=== PATIENT | female | born 1995 | race Hispanic/Latino ===

== ENCOUNTER 2019-07-24 13:09 | Outpatient (CLI) | payer BC ==
[2019-07-24 13:34] VITALS: BP 102/62
--- NOTE | 2019-07-24 14:52 | Ultrasound Report ---
ULTRASOUND BIOPHYSICAL PROFILE INDICATION / CLINICAL INFORMATION: well being. COMPARISON: None available. FINDINGS: BREATHING MOVEMENT = 2 GROSS BODY MOVEMENT = 2 TONE = 2 QUALITATIVE AMNIOTIC FLUID VOLUME = 2 TOTAL BIOPHYSICAL SCORE = 07/01 AMNIOTIC FLUID INDEX (cm) = 16.7 PRESENTATION: Cephalic. HEART RATE (beats per minute): Not measured The fetus is in cephalic position. IMPRESSION: 1. biophysical profile = 07/01 Signer Name: Andrea Brooks MD Signed: 07/24/2019 2:48 PM Workstation Name: [email or web address]
[2019-07-24] MEDS ORDERED: BRETHINE ONE (15:23)
[2019-07-24] MEDS ORDERED: BRETHINE SUB-Q SCH (16:00)
[2019-07-24 16:16] LABS: Bacteria,Urine 1+ /HPF (Negative); Bilirubin,Urine NEG (Negative); Blood,Urine NEG (Negative); Color,Urine Straw (Yellow); Protein,Urine <15 mg/dL mg/dL (Negative); Urobilinogen,Urine < 2.0 mg/dL (<2.0); WBC,Urine < 1.0 /HPF (0.0-6.0)
== END 2019-07-24 16:15 | disposition home or self-care (01) ==
LOC: EDBD 13:09 → TRG 13:09
PROVIDERS: ATTEND Obstetrics & Gynecology
DX: O26.893 Other specified pregnancy related conditions, third trimester (principal); R10.9 Unspecified abdominal pain; O47.03 False labor before 37 completed weeks of gestation, third trimester; Z3A.35 35 weeks gestation of pregnancy
CPT/HCPCS: 59025; 76815; 76819; 81001; 96372; J3105

== ENCOUNTER 2019-07-29 11:02 | Outpatient (CLI) | payer BC ==
[2019-07-29 12:38] VITALS: BP 115/71
== END 2019-07-29 12:46 | disposition home or self-care (01) ==
LOC: TRG 11:02
PROVIDERS: ATTEND Obstetrics & Gynecology
DX: O26.893 Other specified pregnancy related conditions, third trimester (principal); H47.10 Unspecified papilledema; O16.3 Unspecified maternal hypertension, third trimester; Z3A.35 35 weeks gestation of pregnancy
CPT/HCPCS: 59025

== ENCOUNTER 2019-08-20 05:40 | Inpatient (IN) | payer BC ==
[2019-08-20] MEDS ORDERED: FAMOTIDINE 20 MG/2 ML INJ IV ONE (05:46)
[2019-08-20] MEDS ORDERED: METOCLOPRAMIDE 10 MG/2 ML INJ IV ONE (05:46)
[2019-08-20] MEDS ORDERED: BICITRA ORAL LIQD 30ML PO ONE (05:46)
[2019-08-20] MEDS ORDERED: OXYTOCIN 20 UNIT/1000ML DRIP 20 UNITS/1,000 ML BAG IV SCH ×2 (06:00→12:16)
[2019-08-20] MEDS ORDERED: ceFAZolin/Water 2 GM/20 ML 2 GM/20 ML SYRINGE IV NR (06:00)
[2019-08-20] MEDS ORDERED: LACTATED RINGERS 1,000 ML IV SCH (06:00)
[2019-08-20 06:48] LABS: Basophils % (Auto) 0.2 % (0.0-1.8); Eosinophils # (Auto) 0.1 K/mm3 (0.0-0.4); Eosinophils % (Auto) 0.6 % (0.0-4.3); Hematocrit 39.9 % (30.3-42.9); Hemoglobin 13.1 gm/dl (10.1-14.3); Lymphocytes # (Auto) 3.3 K/mm3 (1.2-5.4); Lymphocytes % (Auto) 21.2 % (13.4-35.0); Mean Corpuscular HGB Conc 33 % (30-34); Mean Corpuscular Volume 95 fl (79-97); Monocytes # (Auto) 1.1 K/mm3 (0.0-0.8); Monocytes % (Auto) 7.1 % (0.0-7.3); Red Blood Count 4.22 M/mm3 (3.65-5.03); Red Cell Distribution Width 12.8 % (13.2-15.2)
[2019-08-20] MEDS ORDERED: PROPOFOL 200 MG/20 ML VIAL IV ONE (07:58)
[2019-08-20] MEDS ORDERED: SUCCINYLCHOLINE CHLORIDE 200 MG/10 ML INJ MDV ONE (07:58)
[2019-08-20] MEDS ORDERED: GLYCOPYRROLATE 0.4 MG/2 ML INJ ONE (07:58)
[2019-08-20] MEDS ORDERED: LIDOCAINE MPF (2%) 20 MG/1 ML VIAL 5 ML ONE (07:58)
[2019-08-20] MEDS ORDERED: KETOROLAC 30 MG/1 ML INJ ONE (07:59)
[2019-08-20] MEDS ORDERED: ONDANSETRON 4 MG/2 ML INJ ONE (07:59)
[2019-08-20 08:01] LABS: Platelet Count 299 K/mm3 (140-440)
[2019-08-20] MEDS ORDERED: fentaNYL 100 MCG/2 ML INJ ONE (08:08)
[2019-08-20] MEDS ORDERED: MIDAZOLAM 2 MG/2 ML INJ ONE ×3 (08:09→09:10)
[2019-08-20] MEDS ORDERED: WATER FOR IRRIG STERILE 1,500 ML BOTTLE IR ONE (08:22)
[2019-08-20] MEDS ORDERED: SODIUM CHLORIDE 0.9% IRR 1,500 ML BOTTLE IR ONE (08:22)
[2019-08-20] MEDS ORDERED: HYDROmorphone 1 MG/1 ML INJ ONE ×2 (08:32→09:10)
[2019-08-20] MEDS ORDERED: dexAMETHasone 20 MG/5 ML VIAL ONE (08:37)
[2019-08-20] MEDS ORDERED: ROCURONIUM 50 MG/5 ML INJ IV ONE (08:45)
[2019-08-20] MEDS ORDERED: NEOSTIGMINE 10MG/10 ML INJ MDV ONE (08:52)
--- NOTE | 2019-08-20 09:37 | History and Physical Report ---
History of Present Illness Date of examination: 08/20/19 Date of admission: 08/20/19 05:40 Chief complaint: I'm here for my History of present illness: Pt is a 24 year old who presents for primary at 39 weeks secondary to increased intracranial hypertension and inability to push. Her course has been otherwise uncomplicated. Past History Past Medical History: other (bipolar disorder) Past Surgical History: other (breast reduction) Family/Genetic History: none - Obstetrical History Expected Date of Delivery: 08/27/19 Actual Gestation: 39 Week(s) 0 Day(s) : 2 Para: 0 Medications and Allergies Allergies Allergy/AdvReac Type Severity Reaction Status Date / Time No Known Allergies Allergy Verified 07/29/19 11:29 Home Medications Medication Instructions Recorded Confirmed Last Taken Type Zolpidem [Ambien] 5 mg PO QHS PRN 07/29/19 07/29/19 Unknown History Active Meds: Active Medications Oxytocin/Sodium Chloride (Pitocin/Ns 20 Unit/1000ml Drip) 20 units in 1,000 mls @ 0 mls/hr IV TITR KATELYN Lactated Ringer's (Lactated Ringers) 1,000 mls @ 2,250 mls/hr IV PREOP KATELYN Stop: 08/21/19 06:27 Last Admin: 08/20/19 06:50 Dose: 2,250 mls/hr Documented by: Review of Systems All systems: negative Constitutional: chronic headaches - Vital Signs Vital signs: Vital Signs Temp Resp 98.1 F 18 08/20/19 06:30 08/20/19 06:30 Temp Pulse Resp BP Pulse Ox 98.1 F 117 H 18 126/83 98 08/20/19 06:30 08/20/19 07:52 08/20/19 06:30 08/20/19 06:49 08/20/19 07:52 - Physical Exam Breasts: Positive: deferred Cardiovascular: Regular rate, Normal S1, Normal S2 Lungs: Positive: Clear to auscultation, Normal air movement Abdomen: Positive: normal appearance, soft, normal bowel sounds. Negative: distention, tenderness Vulva: both: normal Vagina: Positive: normal moisture. Negative: discharge Cervix: Negative: lesion, discharge Uterus: Positive: normal size, normal contour Adnexa: both: normal Anus/Rectum: Positive: normal perianal skin, heme negative. Negative: rectal mass, hemorrhoids Extremities: Deep Tendon Reflex Grade: Normal +2 - Obstetrical Cervical Dilatation: 2 Cervical Effacement Percentage: 80 station: -2 Results Result Diagrams: 08/20/19 06:00 Abnormal lab results 08/20/19 Range/Units 06:00 WBC 15.6 H (4.5-11.0) K/mm3 RDW 12.8 L (13.2-15.2) % [place] # 1.1 H (0.0-0.8) K/mm3 Seg Neutrophils % 70.9 H (40.0-70.0) % Seg Neutrophils # 11.0 H (1.8-7.7) K/mm3 All other labs normal. Assessment and Plan IUP at 39 weeks here for . Admit for surgery. Consents signed and placed on chart. Anticipate .
--- NOTE | 2019-08-20 09:40 | Procedure Note ---
OB Delivery Note - Delivery Date of Delivery: 08/20/19 Surgeon: KINZA HUSAIN Estimated blood loss: other (800cc) - Section Preop diagnosis: other (Intracranial hypertension) Postop diagnosis: same section procedure: primary low transverse Disposition: PACU Complications: none Narrative: see op report. - Infant A at 1 minute: 8 at 5 minutes: 9 Gender: Male (7 pounds 10 ounces)
[2019-08-20] MEDS ORDERED: PROMETHAZINE 25 MG RECT SUPP PR PRN (09:58)
[2019-08-20] MEDS ORDERED: diphenhydrAMINE 50 MG/ML VIAL IV PRN (09:58)
[2019-08-20] MEDS ORDERED: HYDROmorphone 1 MG/1 ML INJ IV PRN ×2 (09:58)
[2019-08-20] MEDS ORDERED: ONDANSETRON 4 MG/2 ML INJ IV PRN ×2 (09:58→12:16)
[2019-08-20] MEDS ORDERED: PROMETHAZINE 25 MG TAB PO PRN (09:58)
--- NOTE | 2019-08-20 10:00 | Anesthesia Consultation ---
Anesthesia Consult and Med Hx Date of service: 08/20/19 - Airway Anesthetic Teeth Evaluation: Good ROM Head & Neck: Adequate Mental/Hyoid Distance: Adequate Mallampati Class: Class III Intubation Access Assessment: Probably Good - Pulmonary Exam CTA: Yes - Cardiac Exam Cardiac Exam: RRR - Pre-Operative Health Status ASA Pre-Surgery Classification: ASA3 Proposed Anesthetic Plan: General - Pulmonary Hx Smoking: No Hx Asthma: No Hx Respiratory Symptoms: No SOB: No COPD: No Home Oxygen Therapy: No Hx Pneumonia: No Hx Sleep Apnea: No - Cardiovascular System Hx Hypertension: No Hx Coronary Artery Disease: No Hx Heart Attack/AMI: No Hx Angina: No Hx Percutaneous Transluminal Coronary Angioplasty (PTCA): No Hx Cardia Arrhythmia: No Hx Pacemaker: No Hx Internal Defibrillator: No Hx Valvular Heart Disease: No Hx Heart Murmur: No Hx Peripheral Vascular Disease: No - Central Nervous System Hx Neuromuscular Disorder: Yes (Psudocerbri Malformation) Hx Seizures: No CVA: No Hx Back Pain: No Hx Psychiatric Problems: Yes (bipolar- has taken Trazadone/abilify/resperdal last year) - Gastrointestinal Hx Ulcer: No Hx Gastroesophageal Reflux Disease: No - Endocrine Hx Renal Disease: No Hx End Stage Renal Disease: No Hx Cirrhosis: No Hx Liver Disease: No Hx Insulin Dependent Diabetes: No Hx Non-Insulin Dependent Diabetes: No Hx Thyroid Disease: No Hx Hypothyroidism: No Hx Hyperthyroidism: No - Hematic Hx Anemia: No Hx Sickle Cell Disease: No - Other Systems Hx Alcohol Use: No Hx Substance Use: No Hx Cancer: No Hx Obesity: Yes
--- NOTE | 2019-08-20 10:00 | Anesthesia Day of Surgery ---
Anesthesia Day of Surgery - Day of Surgery Patient Examined: Yes Patient H&P Reviewed: Yes Patient is NPO: Yes Beta Blockers: No Cardiac Clearance: No Pulmonary Clearance: No Colton's Test: N/A
--- NOTE | 2019-08-20 10:01 | Post Anesthesia Evaluation ---
- Post Anesthesia Evaluation Stable Respiratory Function: Yes Nausea/Vomiting: No Temp > 96.8F: Yes Pain Manageable: Yes Adequeate Hydration: Yes Anesthesia Complications: No Block Receding Appropriately: Not Applicable Patient on Ventilator: No
[2019-08-20] MEDS ORDERED: LANOLIN/ZINC/DIMETHICONE (LANSINOH) 7 GM TP PRN (12:16)
[2019-08-20] MEDS ORDERED: WITCH HAZEL/ GLYCERIN PAD TP PRN (12:16)
[2019-08-20] MEDS ORDERED: NALOXONE 0.4 MG/1 ML INJ IV PRN (12:16)
[2019-08-20] MEDS: KETOROLAC 30 MG/1 ML INJ IV PRN ×2 (12:39→18:25)
[2019-08-20] MEDS: D5W/LACTATED RINGERS 1,000 ML IV SCH ×2 (12:40→20:19)
[2019-08-20] MEDS: MORPHINE 4 MG/1 ML INJ IV PRN ×2 (14:37→20:07)
[2019-08-20 21:03] LABS: Hematocrit 31.6 % (30.3-42.9); Hemoglobin 10.6 gm/dl (10.1-14.3)
[2019-08-20] MEDS: SIMETHICONE 80 MG CHEW TAB PO PRN (21:40)
[2019-08-20] MEDS: oxyCODONE /ACETAMINOPHEN 5-325MG TAB PO PRN (22:31)
[2019-08-21] MEDS: IBUPROFEN 800 MG TAB PO PRN ×3 (01:16→18:03)
[2019-08-21] MEDS: oxyCODONE /ACETAMINOPHEN 5-325MG TAB PO PRN ×5 (03:52→23:10)
[2019-08-21] MEDS: SIMETHICONE 80 MG CHEW TAB PO PRN ×3 (06:16→21:33)
[2019-08-21] MEDS: PRENATAL VIT27-FE FUMARATE-FOLIC ACID VIT TAB PO SCH (09:15)
[2019-08-21] MEDS: FERROUS SULFATE 325 MG TAB PO SCH (09:15)
--- NOTE | 2019-08-21 12:15 | Progress Note ---
Assessment and Plan - Patient Problems (1) delivery delivered Current Visit: Yes Status: Acute Plan to address problem: advance diet as tolerated Subjective - Subjective Date of service: 08/21/19 Interval history: Patient complains of lower back pain. Reports being able to void however no flatus yet. Patient reports: appetite normal, voiding normally Objective - Vital Signs Latest vital signs: Vital Signs Temp Pulse Resp BP BP Pulse Ox 08/21/19 08:30 98.9 F 102 H 18 121/76 08/21/19 03:52 20 08/21/19 01:16 20 08/21/19 00:00 98.8 F 78 16 107/71 08/20/19 22:31 20 08/20/19 20:00 98.4 F 66 18 119/90 08/20/19 17:13 97.5 F L 98 H 18 120/81 97 Intake and Output 08/20/19 08/21/19 08/21/19 22:59 06:59 14:59 Intake Total 1156.25 300 120 Output Total 1200 1100 Balance -43.75 -800 120 Intake: IV 956.25 D5lr 1,000 ml @ 125 mls/ 956.25 hr IV DIRECT KATELYN Rx#: [id number] Oral 200 120 Intake, Free Water 300 Output: Urine 1200 1100 Indwelling Catheter 1200 900 Void 200 Other: Total, Intake Amount 200 120 Total, Output Amount 1200 200 # Voids Void 1 - Exam Abdomen: Present: normal appearance Incision: Present: dressed
[2019-08-21] MEDS: SENNOSIDES 8.6 MG TAB PO PRN ×2 (12:17→23:10)
[2019-08-21] MEDS ORDERED: MAGNESIUM HYDROXIDE (MOM) ORAL LIQD UDC PO PRN (22:17)
[2019-08-22] MEDS: oxyCODONE /ACETAMINOPHEN 5-325MG TAB PO PRN (05:02)
[2019-08-22] MEDS ORDERED: TETANUS,DIPH,PERTUSS(ACELL) VACCINE 0.5 ML SYRINGE IM ONE (06:24)
[2019-08-22] MEDS: IBUPROFEN 800 MG TAB PO PRN (10:31)
[2019-08-22] MEDS: FERROUS SULFATE 325 MG TAB PO SCH (10:32)
[2019-08-22] MEDS: PRENATAL VIT27-FE FUMARATE-FOLIC ACID VIT TAB PO SCH (10:32)
--- NOTE | 2019-08-22 14:22 | Progress Note ---
Assessment and Plan - Patient Problems (1) delivery delivered Current Visit: Yes Status: Acute Plan to address problem: patient doing well discharge home Subjective - Subjective Date of service: 08/22/19 Interval history: Patient reports feeling better today. She is tolerating a regular diet and ambulating well Patient reports: appetite normal, voiding normally, pain well controlled : doing well Objective - Vital Signs Latest vital signs: Vital Signs Temp Pulse Resp BP 08/22/19 07:50 98.2 F 104 H 18 125/85 08/22/19 00:00 98.4 F 67 19 107/66 08/21/19 16:25 97.4 F L 100 H 18 131/84 Intake and Output 08/21/19 08/22/19 08/22/19 22:59 06:59 14:59 Intake Total 120 500 440 Output Total 600 Balance -480 500 440 Intake: Oral 120 440 Intake, Free Water 500 Output: Urine 600 Void 600 Other: Total, Intake Amount 120 120 Total, Output Amount 600 # Voids Void 1 1 - Exam Abdomen: Present: normal appearance, soft Incision: Present: normal, dry
--- NOTE | 2019-08-22 14:23 | Discharge Summary ---
Providers - Providers Date of Admission: 08/20/19 05:40 Date of discharge: 08/22/19 Attending physician: KINZA HUSAIN Primary care physician: KINZA HUSAIN Hospitalization Reason for admission: section Delivery: Procedure: section, primary low transverse Discharge diagnosis: IUP at term delivered Hospital course: Patient admitted for scheduled . See op note. Postoperative course uneventful Condition at discharge: Good Disposition: DC-01 TO HOME OR SELFCARE - Discharge Diagnoses (1) delivery delivered Status: Acute Plan - Discharge Medications Prescriptions: Docusate Sodium [Colace] 100 mg PO BID PRN #60 capsule PRN Reason: Constipation Ibuprofen [Motrin] 800 mg PO Q8HR PRN #40 tablet PRN Reason: Pain, Moderate (4-6) Oxycodone HCl/Acetaminophen [Percocet 7.5/325 mg] 1 each PO Q6HR PRN #40 tablet PRN Reason: Pain Sertraline [Zoloft] 50 mg PO QDAY #30 tablet - Provider Discharge Summary Activity: no sex for 6 weeks, no heavy lifting 4 weeks, no strenuous exercise Diet: routine Instructions: routine Additional instructions: [] Smoking cessation referral if applicable(refer to patient education folder for contact #) [] Refer to [facility] Booklet Call your doctor immediately for: * Fever > 100.5 * Heavy vaginal bleeding ( >1 pad per hour) * Severe persistent headache * Shortness of breath * Reddened, hot, painful area to leg or breast * Drainage or odor from incision. * Keep incision clean and dry at all times and follow doctor's instructions regarding bathing/showering schedule followup in 2 weeks - Follow up plan Follow up: KINZA HUSAIN MD [Primary Care Provider] - 7 Days Forms: [facility] Discharge Summary
[2019-08-22 15:28] VITALS: BP 126/67
--- NOTE | 2019-09-07 11:37 | Operative Report ---
Operative Report Operative Report: The operative report for patient José Manuel Date of service 08/20/2019 Preoperative diagnosis: Intrauterine at 39-2/7 weeks 2. Maternal Intracranial hypertension Postoperative diagnosis: Same Procedure: Primary low transverse section Surgeon: Dr. Malgorzata Mayfield EBL: 700 Urine output: 200 mL IV fluids: 1100 mL Findings: Viable male in the vertes presentation. Weight 7 lbs. 10 oz. 3679 g Apgars 9 and 9]. Otherwise normal pelvic anatomy Specimens: None Complications:Due to the patient's history of intracranial hypertension, the procedure was performed under general anesthesia. Procedure: The patient was admitted to the OR with IV running and in place. She was properly identified as herself. She was placed in the dorsal supine position with a leftward tilt. A Rocha catheter was inserted. She was then prepped and draped in the normal sterile fashion. She was then placed under general anesthesia. Once confirmed to be asleep, the incision was made with the scalpel and carried to the underlying fascia using the scalpel and the Bovie. The fascia was incised in the midline and incision was extended bilaterally using the curved King scissors. The fascia was then dissected from the underlying rectus muscles in a series of sharp and blunt dissection using the King scissors. Muscles were in the in the midline sharply using Metzenbaum scissors and the peritoneum was entered into bluntly using the surgeon's fingers. A bladder blade was then placed into the incision to protect the bladder. Following this the bladder flap was created. Hysterotomy incision was then made in the scalpel. Upon uterine entry, the amniotic sac was ruptured for clear fluid. The was then delivered in the vertex position. . His mouth and nose were suctioned on the field. The cord was clamped and cut and he was handed to the waiting NICU personnel. The uterus was then exteriorized and cleared of all clots and debris. The hysterotomy incision was then closed in a running locked fashion using 0 Vicryl. The abdomen was then copiously irrigated with warm normal saline. Following this the uterus was replaced into the abdominal cavity. At this point the muscles were reapproximated in the midline using individual sutures of 0 Vicryl. Following this the fascia was closed in a running fashion using 0 Vicryl. Tissue was then copiously irrigated. Skin was closed in a running fashion using 3-0 Monocryl. The sponge lap needle and instrument counts were correct 2. The patient tolerated the procedure well. She was taken to recovery in stable condition.
== END 2019-08-22 15:55 | disposition home or self-care (01) | DRG 788 ==
LOC: EDBD → APU 05:40 → OB 11:10
PROVIDERS: ADMIT Obstetrics & Gynecology; ATTEND Obstetrics & Gynecology
PROC: 10D00Z1 Extraction of Products of Conception, Low, Open Approach (ICD-10-PCS; principal; 2019-08-20)
PROC: 3E0234Z Introduction of Serum, Toxoid and Vaccine into Muscle, Percutaneous Approach (ICD-10-PCS; 2019-08-22)
DX: O99.354 Diseases of the nervous system complicating childbirth (principal); G93.2 Benign intracranial hypertension; O99.344 Other mental disorders complicating childbirth; F31.9 Bipolar disorder, unspecified; O99.214 Obesity complicating childbirth; Z37.0 Single live birth; Z3A.39 39 weeks gestation of pregnancy; Z23 Encounter for immunization
CPT/HCPCS: 36415; 85014; 85018; 85025; 86850; 86900; 86901; 90471; 90715; G0378; J0330; J0690; J1100; J1170; J1885; J2250; J2270; J2405; J2590; J2704; J2710; J2765; J3010; J7120; J7121

== ENCOUNTER 2019-09-01 10:58 | Emergency (ER) | payer BC ==
[2019-09-01 11:06] VITALS: BP 121/82
--- NOTE | 2019-09-01 11:12 | Event Note ---
ED Screening Note Date of service: 09/01/19 Time: 11:08 ED Screening Note: 24 y/o female comes in for concern of an infection of her . Delivered on 08/20/19. Her OB is Dr. Mayfield. Having hot and cold with sweating. This initial assessment/diagnostic orders/clinical plan/treatment(s) is/are subject to change based on patients health status, clinical progression and re- assessment by fellow clinical providers in the ED. Further treatment and workup at subsequent clinical providers discretion. Patient/guardian urged not to elope from the ED as their condition may be serious if not clinically assessed and managed. Initial orders include:
[2019-09-01 11:59] LABS: Basophils # (Auto) 0.1 K/mm3 (0.0-0.1); Basophils % (Auto) 0.5 % (0.0-1.8); Eosinophils # (Auto) 0.5 K/mm3 (0.0-0.4); Eosinophils % (Auto) 3.5 % (0.0-4.3); Hematocrit 29.5 % (30.3-42.9); Hemoglobin 9.9 gm/dl (10.1-14.3); Lymphocytes # (Auto) 3.3 K/mm3 (1.2-5.4); Lymphocytes % (Auto) 24.1 % (13.4-35.0); Mean Corpuscular HGB Conc 33 % (30-34); Mean Corpuscular Volume 97 fl (79-97); Monocytes # (Auto) 0.5 K/mm3 (0.0-0.8); Platelet Count 451 K/mm3 (140-440); Red Blood Count 3.05 M/mm3 (3.65-5.03); Red Cell Distribution Width 14.3 % (13.2-15.2)
--- NOTE | 2019-09-01 12:00 | Emergency Department Report ---
ED Recheck HPI - General Chief Complaint: Wound/Laceration Stated Complaint: C SECTION INCISION INFECTED Time Seen by Provider: 09/01/19 11:08 Source: patient Mode of arrival: Ambulatory Limitations: No Limitations - History of Present Illness Initial Comments: 24 yo comes to ER with concerns that her csec incision is infected. She reports subj fever and odor from incision. The wound has not been cleaned since of child at the end of last month. 08-20. Pt states she was told not to touch the incision. Not to clean it or get it wet. This is pts first child. The pt is ambulatory and non toxic on admit to ER. She is taking PO. No fever, tachycardia (HR 90 on exam, and no hypotension. Pt appnt for follow up is not until 09-06. Complaint: wound re-check -: week(s) Returns Today for: other Associated Symptoms: none - Related Data Previous Rx's Medication Instructions Recorded Last Taken Type Docusate Sodium [Colace] 100 mg PO BID PRN #60 capsule 08/21/19 Unknown Rx Ibuprofen [Motrin] 800 mg PO Q8HR PRN #40 tablet 08/21/19 Unknown Rx Oxycodone HCl/Acetaminophen 1 each PO Q6HR PRN #40 tablet 08/21/19 Unknown Rx [Percocet 7.5/325 mg] Sertraline [Zoloft] 50 mg PO QDAY #30 tablet 08/21/19 Unknown Rx cephALEXin [Keflex] 500 mg PO Q12HR #20 cap 09/01/19 Unknown Rx Allergies Allergy/AdvReac Type Severity Reaction Status Date / Time No Known Allergies Allergy Verified 07/29/19 11:29 ED Review of Systems ROS: Stated complaint: C SECTION INCISION INFECTED Other details as noted in HPI Comment: All other systems reviewed and negative ED Past Medical Hx - Past Medical History Previous Medical History?: No Hx Hypertension: No Hx Heart Attack/AMI: No Hx Diabetes: No Hx Deep Vein Thrombosis: No Hx Liver Disease: No Hx Renal Disease: No Hx Sickle Cell Disease: No Hx Seizures: No Hx Asthma: No Hx COPD: No Hx HIV: No Additional medical history: peudo-tumor/ IC hypertenion - Surgical History Past Surgical History?: Yes Hx Pacemaker: No Hx Internal Defibrillator: No Additional Surgical History: , breast reduction, tonsillectomy - Family History Family history: no significant - Social History Smoking Status: Never Smoker Substance Use Type: None - Medications Home Medications: Home Medications Medication Instructions Recorded Confirmed Last Taken Type Docusate Sodium [Colace] 100 mg PO BID PRN #60 capsule 08/21/19 Unknown Rx Ibuprofen [Motrin] 800 mg PO Q8HR PRN #40 tablet 08/21/19 Unknown Rx Oxycodone HCl/Acetaminophen 1 each PO Q6HR PRN #40 tablet 08/21/19 Unknown Rx [Percocet 7.5/325 mg] Sertraline [Zoloft] 50 mg PO QDAY #30 tablet 08/21/19 Unknown Rx cephALEXin [Keflex] 500 mg PO Q12HR #20 cap 09/01/19 Unknown Rx ED Physical Exam - General Limitations: No Limitations, Language Barrier - Head Head exam: Present: normocephalic - Eye Eye exam: Present: normal appearance - ENT ENT exam: Present: mucous membranes moist - Neck Neck exam: Present: normal inspection - Respiratory Respiratory exam: Present: normal lung sounds bilaterally - Cardiovascular Cardiovascular Exam: Present: regular rate - GI/Abdominal GI/Abdominal exam: Present: soft, normal bowel sounds. Absent: distended, tenderness, guarding, rebound, rigid, hyperactive bowel sounds, hypoactive bowel sounds, organomegaly, mass, bruit, pulsatile mass, hernia - Rectal Rectal exam: Present: deferred - Extremities Exam Extremities exam: Present: normal inspection - Back Exam Back exam: Present: normal inspection - Neurological Exam Neurological exam: Present: alert, oriented X3, CN II-XII intact - Psychiatric Psychiatric exam: Present: normal affect, normal mood - Skin Skin exam: Present: warm, dry, intact, normal color. Absent: rash, cyanosis, diaphoretic, erythema, urticaria, vesicles, petechiae, pallor, abrasion, ecchymosis ED Course Vital Signs 09/01/19 11:02 Temperature 98.7 F Pulse Rate 102 H Respiratory 16 Rate Blood Pressure 121/82 O2 Sat by Pulse 100 Oximetry ED Recheck MDM - Core Measures Measure Exclusions: not indicated - Differential Diagnosis Wound Recheck wound infection - Medical Decision Making The wound was covered in crust and steri strips; it had not been cleaned since of child at the end of Jul I cleaned the wound with 1/2ns and 1/2 betadine. Once cleaned the wound appears to be healing well. There is no open area. No pathalogical redness. No drainage. Palpation on the wound yields no pain or drainage. The edges are well approximated. Once the old drainage and steristrips were removed from the pt the odor went away. The pt is not tachycardic, hypotensive, or febrile. There is no pain on palp of abd. I can not yield drainage from wound pt has been educated on wound care and will dc home with follow up with obgyn. WBC trending down from time of . I will cover pt with Keflex and dc home with dc plan of care. Pt is non septic and non ill appearing. Taking PO and ambulatory with out complaints on dc from the ER. Her and her grandmother have been educated on plan of care Labs 09/01/19 09/01/19 11:29 11:29 WBC 13.6 H RBC 3.05 L Hgb 9.9 L Hct 29.5 L MCV 97 MCH 32 MCHC 33 RDW 14.3 Plt Count 451 H Lymph % (Auto) 24.1 [place] % (Auto) 4.0 Eos % (Auto) 3.5 Baso % (Auto) 0.5 Lymph # 3.3 [place] # 0.5 Eos # 0.5 H Baso # 0.1 Seg Neutrophils % 67.9 Seg Neutrophils # 9.3 H Sodium 141 Potassium 4.0 Chloride 102.3 Carbon Dioxide 25 Anion Gap 18 BUN 9 Creatinine 0.8 Estimated GFR > 60 BUN/Creatinine Ratio 11 Glucose 104 H Calcium 9.1 Critical care attestation.: If time is entered above; I have spent that time in minutes in the direct care of this critically ill patient, excluding procedure time. ED Disposition Clinical Impression: Encounter for wound re-check Disposition: DC-01 TO HOME OR SELFCARE Is pt being admited?: No Does the pt Need Aspirin: No Condition: Stable Additional Instructions: clean wound with soap and water follow up with obgyn as scheduled Prescriptions: cephALEXin [Keflex] 500 mg PO Q12HR #20 cap Referrals: PRIMARY CARE, [Referring] - 3-5 Days Time of Disposition: 11:59
[2019-09-01 12:21] LABS: BUN/Creatinine Ratio 11; Blood Urea Nitrogen 9 mg/dL (7-17); Calcium 9.1 mg/dL (8.4-10.2); Hemolysis Index 6
== END 2019-09-01 12:24 | disposition home or self-care (01) ==
LOC: ED 10:58
DX: R50.9 Fever, unspecified (principal); Z48.00 Encounter for change or removal of nonsurgical wound dressing
CPT/HCPCS: 36415; 80048; 85025